=== PATIENT | male | born 1940 | race Caucasian/White ===

== ENCOUNTER 2018-06-10 14:51 | Outpatient (CLI) | payer MEDICARE, SELFPAY ==
--- NOTE | 2018-06-10 14:12 | DI.RAD_ITS ---
SYMPTOMS/DIAGNOSIS: RIGHT FOOT PAIN RIGHT FOOT: There are no prior comparison exams. There are severe degenerative changes of the 1st MTP joint. There is some flattening of the 1st metatarsal head and adjacent base of the 5th metatarsal and prominent periarticular spurring. No hallux valgus is seen. The remaining MTP joints are well maintained. IMPRESSION: Severe degenerative changes of the 1st MTP joint.
== END 2018-06-10 15:11 ==
PROVIDERS: PCP Family Medicine; Referring Provider Family Medicine; Visit Provider Student in an Organized Health Care Education/Training Program
DX: M79.671 Pain in right foot (principal); M19.071 Primary osteoarthritis, right ankle and foot; M20.21 Hallux rigidus, right foot
CPT/HCPCS: 99214; 73630

== ENCOUNTER 2018-08-28 08:54 | Outpatient (CLI) | payer MEDICARE, SELFPAY ==
--- NOTE | 2018-08-28 09:40 | DI.RAD_ITS ---
SYMPTOM/DIAGNOSIS: PRODUCTIVE COUGH, RHONCHI, WHEEZES LT, PREOP,Z01.818 PA AND LATERAL CHEST: The heart is not enlarged. The lungs appear grossly clear. No pleural effusion is seen. CONCLUSION: No evidence of acute disease.
--- NOTE | 2018-08-28 12:49 | W.PREOPHP ---
Assessment and Plan (1) Hallux rigidus, right foot: Current visit: Yes Status: Chronic (2) Arthritis of first metatarsophalangeal (MTP) joint of right foot: Current visit: Yes Status: Chronic Plan: Educated patient on surgery covering surgical technique, recovery process, benefits and risks including but not limited to risk of infection, blood clot, damage to soft tissue/ligaments/nerve/blood vessels in detail. After discussion patient gave verbal understanding of risks and elected to proceed with surgery. Patient had opportunity to have questions answered to his satisfaction. Dr. Park educated patient on risk of respiratory cold/infection and anesthesia. Discussed possibility of completing surgery with use of nerve block versus general anesthesia. Educated patient if he does not have improved symptoms prior to surgery will likely reschedule. Patient feels that he is starting to improve significantly, however due to complaints of green phlegm and physical examination findings a chest x-ray was ordered. Two unsuccessful attempts were made to contact patient via phone on Friday afternoon. At this time patient surgery is 11 days away therefore we will continue to keep in contact with patient regarding cold symptoms. If patient does not have improved symptoms will likely postpone surgery. Patient is agreeable to plan and will contact office next week. Patient will continue to be scheduled for right first MTP fusion with Dr. Park on 09/08/18 dependant on the resolution of his cold symptoms. History of Present Illness Narrative: Mr. Gregory is a 78-year-old male who presents to clinic for his pre-operative appointment for scheduled right first MTP fusion with Dr. Park on 09/08/18. Patient complains of right foot pain located over the dorsum and plantar aspect along the base of his great toe. He reports intermittent pain over this area for the past several years that became more chronic following his total hip replacement approximately 2 and half years ago. Patient reports while he was doing stair steps with physical therapy he began to develop constant discomfort on his right foot. Since that time patient has continued to have pain that is aggravated with prolonged walking and activities including racquetball when he pushes off with his right foot. Patient describes pain has become more constant and has increased in intensity. Although pain does not restrict patient's activity i.e. continues to walk and play regular sessions of racquetball, he does report increased right foot pain during and following activity. On rare occasion patient will take an Advil at nighttime to help alleviate his right foot pain. Patient denies any known injury to his right foot. Denies symptoms of numbness or tingling. When patient was seen in orthopedic office on 06/10/18 he had x-rays completed which showed severe degenerative changes of the MTP joint. Due to patient's continued MTP joint pain and significant arthritic changes on x-ray he was offered and elected to proceed with surgical intervention. Pertinent Surgical Information Patient reports every late winter/early spring he has cold lasting approximately 1 to 2 weeks. Patient describes his normal cold involves a dry cough with deep breathing. However, patient reports since Friday (08/26/18) he has had a productive cough with green phlegm. Patient is also been experiencing wheezing with deep exhaling. He has been treating symptoms with nasal spray and denies using additional cold medications. Patient denies symptoms of fevers, chills, dyspnea or dyspnea on exertion. On physical exam today patient is noted to have expiratory wheezes as well as rhonchi in his left lower lobe. On physical exam patient is not diaphoretic nor does he exhibit signs of labored breathing/productive cough. However, due to patient's reported symptoms and physical examination a chest x-ray was ordered which was normal - please see further description of x-ray under Results section. Patient reports he had sleep study done in [place], [place] approximately 5 years ago when he was diagnosed with obstructive sleep apnea. However, as per patient his physician recommended adjustment in sleep positioning and did not recommend CPAP/BiPAP machine for patient. Patient reportedly has been in his sleep positioning with the use of pillows he has not experienced excessive snoring as per his , orthopnea or PND. Denies past medical history of: Hypertension, stroke, cardiac issues, angina, asthma, COPD, renal issues, liver issues, hepatitis, gastrointestinal issues, ulcers, hyperlipidemia, bleeding disorders, seizures, migraines, anxiety, depression, diabetes, autoimmune disorders, thyroid issues Patient reports following anesthesia received for surgery of detached right retina in 1988 he did experience vomiting. He does not report any complications or further vomiting episodes following anesthesia from his additional surgeries. Denies prior complications from surgery. Review of Systems Constitutional Denies chills, Denies fever(s), Denies frequent falls and Denies headache(s) Eyes Denies change in vision ENT Denies dizziness, Denies ear discharge, Denies headache(s), Denies epistaxis, Denies mouth pain, Denies nasal congestion, Denies nasal discharge and Denies sore throat Cardiovascular Denies chest pain, Denies rapid heart rate, Denies irregular heart rhythm, Denies palpitations, Denies dyspnea, Denies dyspnea on exertion, Denies orthopnea (doesn't lay flat at night due to recommendations following sleep study), Denies paroxysmal nocturnal dyspnea and Denies slow heart rate Respiratory Reports cough, Reports excessive phlegm production (green phlegm for last 3 days), Reports pain with cough (muscle pain following three days of coughing), Denies dyspnea, Denies dyspnea on exertion and Reports wheezing (for last week) Gastrointestinal Denies abdominal pain, Denies melena, Denies hematochezia, Denies constipation, Denies diarrhea, Denies nausea and Denies vomiting Genitourinary Denies hematuria, Denies dysuria and Denies urinary urgency Musculoskeletal Reports as per HPI, Reports muscle cramps (quadriceps cramping follow racquetball ), Denies numbness and Denies tingling Neurologic Denies dizziness, Denies frequent falls, Denies headache(s), Denies numbness and Denies tingling Psychiatric Denies anxiety and Denies depression Endocrine Denies palpitations Allergic/Immunologic Reports wheezing (for last week) PFSH Medical History Obstructive sleep apnea Arthritis of first metatarsophalangeal (MTP) joint of right foot (Chronic) Hallux rigidus, right foot (Chronic) Hip osteoarthritis (Resolved) Cataract (Resolved) Knee osteoarthritis (Resolved) Surgical History History of cataract surgery (Chronic) History of colonoscopy (Chronic) History of hip replacement (Chronic) History of knee replacement (Chronic) History of shoulder surgery (Chronic) History of detached retina repair (Chronic) History of carpal tunnel release (Chronic) Social History Smoking/Tobacco Use Status: Never Alcohol Intake: never Drug use: Never Substance use type: does not use Household members: spouse current occupation: Retired - forester; [place] Do you feel safe at home: Yes Do you feel safe in your relationship?: Yes Meds Home Medications Medication Instructions Recorded Confirmed Type acetaminophen [Acetaminophen Extra 1,000 mg PO TID #180 tab 09/24/16 08/28/18 Rx Strength] ibuprofen 600 mg PO TID PRN PRN #90 tab 09/24/16 08/28/18 Rx Allergies Allergy/AdvReac Type Severity Reaction Status Date / Time bee stings Allergy Uncoded 08/28/18 09:13 Exam Const General: cooperative and no acute distress [facility] Head: normal to inspection, normocephalic and atraumatic Ears: external ears normal General nose exam: external nose normal and no nasal discharge Face and sinus: face symmetric Mouth: oral mucosae normal, lip normal, tongue normal and moist mucous membranes Teeth and gingiva: dentition normal Throat: posterior oropharynx normal (no erythema or coating present) Eyes General: appearance normal, both eyes and all related structures Pupils: PERRL EOM: EOM intact bilaterally Neck Neck: trachea midline Carotids: normal carotid upstroke Lymphatic: no lymphadenopathy noted Resp Effort & Inspection: normal respiratory effort, able to speak in complete sentences, cough (non-productive cough occurs occasionally throughout visit), not labored and no use of accessory muscles Auscultation: lung sounds not diminished, no rales, rhonchi left lower and wheezes expiratory wheezes Cardio Heart Sounds: S1 normal, S2 normal and no murmurs Pulses: radial pulses present bilaterally GI Palpation: soft, no hepatosplenomegaly and nontender Auscultation: normal bowel sounds Skin General skin exam: no rashes or lesions noted Results Imaging Imaging Studies: Chest x-ray was ordered due to patient's respiratory symptoms. Review of chest x-ray showed trachea midline, heart size is appropriate without signs of enlargement, no focal consolidations or signs of effusion. On the lateral x-ray film provider questioned area of radiolucency with presence of lung markings behind the cardiac silhouette, however provider was educated by radiologist that area of retrocardiac space appears normal.
== END 2018-08-28 09:14 ==
PROVIDERS: PCP Family Medicine; Visit Provider Student in an Organized Health Care Education/Training Program
DX: R05 Cough (principal); R06.2 Wheezing; Z01.818 Encounter for other preprocedural examination; M20.21 Hallux rigidus, right foot; M19.071 Primary osteoarthritis, right ankle and foot
CPT/HCPCS: NC; 71046

== ENCOUNTER 2018-09-08 08:23 | Day surgery (SDC) | payer MEDICARE, SELFPAY ==
[2018-09-08] VITALS (7 sets, daily range): BP systolic 120–169; BP diastolic 47–97; PULSE 53–66; RESP 14–23; TEMP 35.4–36.7; O2SAT 95–100
--- NOTE | 2018-09-08 08:02 | DI.RAD_ITS ---
SYMPTOM/DIAGNOSIS: ARTHRITIS 1ST MTP JOINT C-ARM: Fluoroscopy Time: 1.35 seconds .1199 mGy Intraoperative images of the right foot demonstrate fusion of the first metatarsal phalangeal joint. Plate and screw fixation device in place.
[2018-09-08] MEDS: Lactated Ringers 1,000 ML 80 ML IV ×2 (09:05→10:41)
--- NOTE | 2018-09-08 09:36 | PDOC.DSDIS_ITS ---
Discharge Plan Disposition Patient Disposition: HOME Condition: Good Discharge Details Reason For Visit: R hallux rigidus Attending Provider: Mio Park Primary Care Provider: Ramírez Heller Home Meds and New Rx's Prescriptions: New aspirin [Aspirin Low Dose] 81 mg tablet,delayed release (DR/EC) 81 mg PO BID Qty: 30 RF: 0 Continued acetaminophen [Acetaminophen Extra Strength] 500 MG tablet 1,000 mg PO TID Qty: 90 RF: 3 ibuprofen 600 MG tablet 600 mg PO TID PRN PRNQty: 90 RF: 0 Discharge Instructions Additional Instructions: Activity: You are NON WEIGHT BEARING. You may place your heel on the ground for balance and support if necessary. You should keep the leg elevated as much as possible. Dressings: You should keep your splint clean and dry. Do NOT get wet or dirty. If you have issues with your splint, please call and ask for Dr. Park. Medications: - You should take Tylenol and Ibuprofen around the clock for baseline pain. - You have not been prescribed a stronger narcotic for breakthrough pain per your request. If you feel you need something stronger, please do not hesitate to call Dr. Park. - You should take a Baby Aspirin (81mg) twice a day for blood clot prevention. Follow-up: 2 weeks Stand Alone Forms: Anes.Nerve Block Instructions, [facility] Post op Instructions, [facility] ([facility]) Referrals: Mio Park MD [ [facility] STAFF PHYSICIAN] - Equipment/Supplies: Non-Weight Bearing Crutches Activity:: Elevate Remove Dressings/Wound Care:: Do Not Remove Shower/Bathe:: Cover Diet:: As Tolerated Discharge Orders Discharge Orders: Discharge Order (Routine); Ordered 09/08/18 Ordered By: Mio Park DS: Diagnosis Discharge Diagnosis (1) Hallux rigidus, right foot: Status: Chronic
[2018-09-08] MEDS: ceFAZolin 2 GM/50 ML BAG IVPB (09:47)
[2018-09-08] MEDS: Bupivacaine LIPOSOME/PF 133 MG/10 ML VIAL IJ (11:28)
[2018-09-08] MEDS: fentaNYL 100 MCG/2 ML VIAL IVP (12:05)
[2018-09-08] MEDS: HYDROcodone 5/Acetaminophen 325 TAB PO (12:53)
--- NOTE | 2018-09-09 10:22 | ROE_ITS ---
REPORT OF OPERATIVE PROCEDURE DATE OF SURGERY September 08, 2018 PREOPERATIVE DIAGNOSES Right foot hallux rigidus, first MTP osteoarthritis. POSTOPERATIVE DIAGNOSES Right foot hallux rigidus, first MTP osteoarthritis. SURGERY First MTP fusion of the right foot. SURGEON Mio Park M.D. [employer] Carmina Trejo PA-C FINDINGS There was significant arthritis seen within the first MTP joint. Multiple loose bodies were present. There were large osteophytes present. The bone was very sclerotic and difficult to penetrate due to t he amount of eburnation. Preserving length of the toe, and also getting an adequate reduction proved challenging. The toe was held together with a single lag screw and supported by a dorsal plate. ANESTHESIA General. ESTIMATED BLOOD LOSS 50 cc. COMPLICATIONS None. DISPOSITION The patient awakened from anesthesia and taken back to the PACU in a stable condition. INDICATION FOR PROCEDURE Sadi is a 78-year old who has had persistent pain of his right great toe MTP joint pain. He had nota ble arthritis. He had limitation of motion and pain. He had tried conservative treatment options incl uding shoe modification, anti-inflammatory use. Despite these efforts, he failed conservative treatme nts. I offered surgical intervention to include fusion. After reviewing these technical details, he a greed to proceed. I reviewed the risks of the procedure to include bleeding, infection, pain, stiffne ss, failure to unite, malunion, damage to nerves and vessels, damage to muscle and tendons, need for repeat procedures. Despite these risks, he elected to proceed. PROCEDURE DESCRIPTION Sadi was greeted in the preoperative holding area. His identify was confirmed and the correct side was identified and marked. The consent was reviewed with the patient and signed. He was taken back to the Operating Room and placed in the supine position. All bony prominences were well padded. Prophyl actic antibiotics in the form of cefazolin were given. A time-out was performed for safe surgery. The right foot was prepped with ChloraPrep and draped in a standard fashion. The proposed surgical si te was anaesthetized with 0.5% bupivacaine. An Esmarch tourniquet was then made around the level of t he ankle. A dorsal medial approach was then made to the first MTP joint. This was taken down sharply through the skin. Blunt dissection was used to identify the capsule of the toe and the medial soft ti ssues. This was then incised sharply all the way down to bone onto the proximal phalanx and onto the distal metatarsal. Subperiosteal dissection was made around the metatarsal and proximal phalanx. The tissues were stripped around the entire and first MTP joint for full exposure. With this now exposed , there was notable arthritis present. Large osteophytes were seen. Three of these were loose; these were removed. Osteophytes from around the first MTP joint were resected. After releasing the capsule around the first MTP joint, we were able to fully disarticulate the joint. With the major osteophyt es removed, a K-wire was placed down the shaft of the first Metatarsal. A cup reamer was then used on the first metatarsal. This was taken down through the remaining cartilage. I always try to take this down into the subchondral bone. The bone was very sclerotic and very eburnated. I continued to take this down to what I thought was a sufficient level of bone. However, it ended up taking approximately 1 to 2 millimeters of bone, slightly more than I would have liked. The bone still was somewhat scler otic. I then used a K-wire to demonstrate multiple holes within this area. I also used a straight ost eotome to further decorticate this area for likely fusion. The same was done on the proximal phalanx side, but with the cone reamer. This created a matching surface for the metatarsal. Once this was com pleted, the bones were brought together and an appropriate reduction was held. A K-wire was placed ac ross the joint from distal medial to proximal lateral. With this now being held in position, an x-ray was obtained, which showed appropriate positioning. There seemed to be excellent contact to the join t surface, except for a very small amount of gapping plantarly. I did not think it represented more t andrew 20% of the total joint surface and therefore, I did not adjust. The difficulty was keeping the to e in a good position; it wanted to fall into position of some slight valgus and pronation. To bring the toe out of this position, it then created a more of a varus look to the toe. Therefore, I accepte d a slight amount of valgus of the toe. It appeared to be proximally positioned with a slight amount of valgus and about 5 degrees or so of dorsiflexion. Again, it was held with a K-wire and confirmed o n x-ray. A flat plate was also placed underneath the foot to make sure that it was touching the groun d and was able to be lifted off. With this held in position with the K-wire, the K-wire was used with cannulated drill followed by can nulated screw. A 3-mm cannulated screw was then placed across this with excellent compression at the level of the joint. A neutralization plate was then placed dorsally. This is an Arthrex contour plate . Some plate bending was required due to the shape of his metatarsal bone. Once it was contoured, the plate was placed onto the bone. It was secured by nonlocking screws in both the proximal phalanx and in the first metatarsal. The remainder of metatarsal screws were placed in a nonlocking fashion. Two locking screws were placed in the proximal phalanx. This appeared to have excellent fit to the bone and supported the union site. X-rays once again were confirmed to show appropriate positioning with n o screws penetrating the plantar surface. The wound was then thoroughly irrigated. The deep tissues a nd the periosteal peel were then closed. This covered the plate fully. The deeper tissues were irriga jerry and were also closed. All of the periosteum and deep tissues were injected with Exparel. The [facility] tourniquet was released after an hour. There was no significant arterial bleeding. The wound was fully closed with Nylon. Dressings of Xeroform, 4x4s, ABD and Webril were applied. A short leg splin t was created for the patient. He was awakened from anesthesia and taken to the PACU in stable condit ion. At the end of the case, all counts were correct.
== END 2018-09-08 13:40 | disposition home or self-care (01) ==
PROVIDERS: PCP Family Medicine; Visit Provider Student in an Organized Health Care Education/Training Program
PROC: (CPT 28740; principal; 2018-09-08 10:30)
DX: M20.21 Hallux rigidus, right foot (principal); M19.071 Primary osteoarthritis, right ankle and foot; M79.671 Pain in right foot; G47.33 Obstructive sleep apnea (adult) (pediatric)
CPT/HCPCS: 28750; C1713; 73620; E0114; J0690; J1100; J1885; J2405; J3010

== ENCOUNTER 2018-09-10 13:30 | Outpatient (CLI) | payer MEDICARE, SELFPAY | END 2018-09-10 13:50 | PROVIDERS: PCP Family Medicine; Visit Provider Student in an Organized Health Care Education/Training Program | DX: Z47.89 Encounter for other orthopedic aftercare (principal); M20.21 Hallux rigidus, right foot; M79.671 Pain in right foot ==

== ENCOUNTER 2018-09-18 10:53 | Outpatient (CLI) | payer MEDICARE, SELFPAY ==
--- NOTE | 2018-09-18 10:50 | DI.RAD_ITS ---
SYMPTOMS/DIAGNOSIS: RT GREAT TOE FUSION RIGHT FOOT: Comparison is made with intraoperative images of [id number]. Hardware is again noted across the first MTP joint, unchanged in position. No new abnormalities are seen.
== END 2018-09-18 11:13 ==
PROVIDERS: PCP Family Medicine; Referring Provider Family Medicine; Visit Provider Student in an Organized Health Care Education/Training Program
DX: M19.071 Primary osteoarthritis, right ankle and foot (principal); M20.21 Hallux rigidus, right foot; Z47.89 Encounter for other orthopedic aftercare
CPT/HCPCS: 73630; L3260

== ENCOUNTER 2018-10-14 13:51 | Outpatient (CLI) | payer MEDICARE, SELFPAY ==
--- NOTE | 2018-10-14 13:42 | DI.RAD_ITS ---
SYMPTOM/DIAGNOSIS: F/U, S/P RT GREAT TOE FUSION RIGHT FOOT: Comparison is made with 09/18/18. Hardware is again noted across the first MTP joint which appears unchanged. No new abnormalities are identified.
== END 2018-10-14 14:11 ==
PROVIDERS: PCP Family Medicine; Referring Provider Family Medicine; Visit Provider Student in an Organized Health Care Education/Training Program
DX: M20.21 Hallux rigidus, right foot (principal); M19.071 Primary osteoarthritis, right ankle and foot; Z98.1 Arthrodesis status; Z47.89 Encounter for other orthopedic aftercare
CPT/HCPCS: 73630

== ENCOUNTER 2018-11-18 13:19 | Outpatient (CLI) | payer MEDICARE, SELFPAY ==
--- NOTE | 2018-11-18 13:17 | DI.RAD_ITS ---
SYMPTOMS/DIAGNOSIS: RIGHT GREAT TOE FUSION RIGHT FOOT: Three views were obtained and show 1st MTP joint arthrodesis with plate and screw fixation in place. Alignment appears unchanged in comparison with the previous examination of October 14.
== END 2018-11-18 13:39 ==
PROVIDERS: PCP Family Medicine; Referring Provider Family Medicine; Visit Provider Student in an Organized Health Care Education/Training Program
DX: M20.21 Hallux rigidus, right foot (principal); M19.071 Primary osteoarthritis, right ankle and foot; Z47.89 Encounter for other orthopedic aftercare; Z98.1 Arthrodesis status
CPT/HCPCS: 73630